=== PATIENT | female | born 1990 | race Caucasian/White ===

== ENCOUNTER 2016-11-26 21:53 | Emergency (ER) | payer OTHER ==
[~2016-11-26] VITALS: Ht 167.6 cm; Wt 83.0 kg
[~2016-11-26 21:53] MED LIST: Motrin PO; Percocet 5/325,Endoc PO; TORADOL10 MG PO; ZOFRAN4 MG PO
[2016-11-27] MEDS ORDERED: TRAMADOL HCL50 MG PO (00:35)
[2016-11-27] MEDS ORDERED: MEDROL DOSEPAK4 MG PO (00:35)
[2016-11-27 00:42] VITALS: BP 109/78
== END 2016-11-27 00:42 | disposition home or self-care (01) ==
LOC: EME 21:53
DX: M54.42 Lumbago with sciatica, left side (principal)
CPT/HCPCS: 72070; 99281; 99284; J1885

== ENCOUNTER 2017-10-12 08:04 | Emergency (ER) | payer OTHER ==
[~2017-10-12] VITALS: Ht 167.6 cm; Wt 79.8 kg
[~2017-10-12 08:04] MED LIST changes: +MEDROL DOSEPAK4 MG PO; +TRAMADOL HCL50 MG PO
[2017-10-12 08:52] LABS: BASOPHIL (%) 0.2 % (0-1); EOSINOPHIL (%) 0.8 % (0-5); HEMATOCRIT 36.6 % (36.0-46.0); HEMOGLOBIN 12.2 G/DL (11.9-15.5); IMMATURE GRANULOCYTE (%) 0.2 % (0.0-0.7); LYMPHOCYTE (%) 7.4 % (15-42); LYMPHOCYTE COUNT 0.4 K/uL (1.0-2.8); MCH 30.6 PG (29.0-34.0); MCHC 33.3 G/DL (30.0-36.0); MCV 91.7 FL (83-99); MONOCYTE COUNT 0.6 K/uL (0-0.8); NEUTROPHIL (%) 78.4 % (45-76); NEUTROPHIL COUNT 3.7 K/uL (1.8-6.4); PLATELET COUNT 128 K/uL (156-360); RBC DIS.WIDTH-CV 12.5 % (11.8-14.6); RBC DIS.WIDTH-SD 41.8 % (39-53); RED BLOOD COUNT 3.99 M/uL (3.80-5.20); WHITE BLOOD COUNT 4.7 K/uL (4.1-10.2)
[2017-10-12 09:02] LABS: CHLORIDE 105 mEq/L (99-109); POTASSIUM 4.2 mEq/L (3.7-5.4); SODIUM 137 mEq/L (136-147)
[2017-10-12 09:04] LABS: GLUCOSE 91 mg/dL (70-99)
[2017-10-12 09:07] LABS: CREATININE 0.8 mg/dL (0.6-1.3); GFR ESTIMATE (CALCULATED) > 59 mL/min/
[2017-10-12 09:08] LABS: UREA NITROGEN (BUN) 16 mg/dL (9-23)
[2017-10-12 09:32] LABS: QUANTITATIVE HCG < 4.0 MIU/ML
[2017-10-12] MEDS ORDERED: FIORICET 50-301 EAC1 PO (10:23)
[2017-10-12] MEDS ORDERED: AUGMENTIN875 MG PO (10:23)
[2017-10-12 10:46] VITALS: BP 117/65
== END 2017-10-12 10:48 | disposition home or self-care (01) ==
LOC: EME 08:04
PROVIDERS: Emergency Medicine
DX: J06.9 Acute upper respiratory infection, unspecified (principal); R51 Headache; Z88.1 Allergy status to other antibiotic agents; Z87.891 Personal history of nicotine dependence
CPT/HCPCS: 70450; 80048; 84702; 85025; 99281; 99284; J1885; J2765; J7030

== ENCOUNTER 2017-12-19 14:45 | Emergency (ER) | payer OTHER ==
[~2017-12-19] VITALS: Ht 167.6 cm; Wt 78.4 kg
[~2017-12-19 14:45] MED LIST changes: +AUGMENTIN875 MG PO; +FIORICET 50-301 EAC1 PO
[2017-12-19 16:01] LABS: HEMATOCRIT 37.4 % (36.0-46.0); MCH 31.6 PG (29.0-34.0); MCHC 34.8 G/DL (30.0-36.0); MCV 90.8 FL (83-99); PLATELET COUNT 188 K/uL (156-360); RBC DIS.WIDTH-CV 12.3 % (11.8-14.6); RBC DIS.WIDTH-SD 40.5 % (39-53); RED BLOOD COUNT 4.12 M/uL (3.80-5.20)
[2017-12-19 16:11] LABS: CHLORIDE 103 mEq/L (99-109); POTASSIUM 3.7 mEq/L (3.7-5.4); SODIUM 136 mEq/L (136-147)
[2017-12-19 16:13] LABS: GLUCOSE 84 mg/dL (70-99)
[2017-12-19 16:13] LABS: APPEARANCE SL.HAZY ((CLEAR)); BILIRUBIN NEGATIVE; BLOOD NEGATIVE; COLOR YELLOW ((YELLOW)); GLUCOSE (STRIP) NEGATIVE; KETONES 80; LEUKOCYTES NEGATIVE; NITRITE NEGATIVE; PROTEIN (STRIP) NEGATIVE; SPECIFIC GRAVITY 1.025 (1.000-1.030); UROBILINOGEN 0.2 MG/DL (0.2-1.0)
[2017-12-19 16:17] LABS: CREATININE 0.7 mg/dL (0.6-1.3); GFR ESTIMATE (CALCULATED) > 59 mL/min/; UREA NITROGEN (BUN) 12 mg/dL (9-23)
[2017-12-19 16:27] LABS: BACTERIA NONE SEEN /HPF; EPITHELIAL CELLS 2+ /HPF; HYALINE CASTS 0-5 /LPF; MUCUS 4+ /LPF; RED BLOOD CELLS 0-5 /HPF (0-5); UCUL ADDED? YES
[2017-12-19 17:06] VITALS: BP 124/71
== END 2017-12-19 17:06 | disposition home or self-care (01) ==
LOC: EME 14:45
PROVIDERS: Physician Assistant
DX: O9A.211 Injury, poisoning and certain other consequences of external causes complicating pregnancy, first trimester (principal); S09.90XA Unspecified injury of head, initial encounter; R10.9 Unspecified abdominal pain; W10.9XXA Fall (on) (from) unspecified stairs and steps, initial encounter; Y93.01 Activity, walking, marching and hiking; Z3A.08 8 weeks gestation of pregnancy; Z87.891 Personal history of nicotine dependence
CPT/HCPCS: 76801; 80048; 81003; 82948; 85027; 87077; 87086; 87186; 99281; 99284